=== PATIENT | male | born 1980 | race Two or more races ===

== ENCOUNTER 2018-04-29 06:58 | Emergency (ER) | payer SELFPAY ==
[~2018-04-29] VITALS: Ht 182.9 cm; Wt 114.3 kg
[2018-04-29 07:16] VITALS: BP 134/84; Ht 182.9 cm; Wt 114.3 kg
== END 2018-04-29 08:54 | disposition home or self-care (01) ==
LOC: ED 06:58
DX: G56.01 Carpal tunnel syndrome, right upper limb (principal)